=== PATIENT | female | born 1990 | race Hispanic/Latino ===

== ENCOUNTER 2019-02-25 12:39 | Emergency (ER) | payer SELFPAY ==
--- NOTE | 2019-02-25 12:46 | Event Note ---
ED Screening Note Date of service: 02/25/19 Time: 12:45 ED Screening Note: 28 y/o female comes in for left great toe pain, redness and discharge. This initial assessment/diagnostic orders/clinical plan/treatment(s) is/are subject to change based on patients health status, clinical progression and re- assessment by fellow clinical providers in the ED. Further treatment and workup at subsequent clinical providers discretion. Patient/guardian urged not to elope from the ED as their condition may be serious if not clinically assessed and managed. Initial orders include:
[2019-02-25 12:47] VITALS: BP 100/68
--- NOTE | 2019-02-25 14:54 | Emergency Department Report ---
ED Lower Extremity HPI - General Chief Complaint: Extremity Problem,Nontraumatic Stated Complaint: INFECTION ON TOE/BLEEDING Time Seen by Provider: 02/25/19 12:45 Source: patient Mode of arrival: Ambulatory Limitations: No Limitations - History of Present Illness Initial Comments: infected left great toe Complaint: other (left great toe) Onset/Timin -: days(s) Injury: Toes: Left (great) Type of Injury: unknown Place: home Severity: severe Severity scale (0 -10): 8 Improves With: nothing Worsens With: movement Context: other (unknown) Other Symptoms: other (none) Associated Symptoms: swelling, able to partially bear weight Treatments Prior to Arrival: bandage - Related Data Previous Rx's Medication Instructions Recorded Last Taken Type Clindamycin [Clindamycin CAP] 300 mg PO Q8H #30 cap 02/25/19 Unknown Rx Ibuprofen [Motrin 600 MG tab] 600 mg PO TID #30 02/25/19 Unknown Rx Mupirocin [Bactroban 2%] 1 applic TP TID #1 tube 02/25/19 Unknown Rx Allergies Allergy/AdvReac Type Severity Reaction Status Date / Time No Known Allergies Allergy Unverified 02/25/19 12:42 ED Review of Systems ROS: Stated complaint: INFECTION ON TOE/BLEEDING Other details as noted in HPI Constitutional: denies: chills, fever Eyes: denies: eye pain, eye discharge, vision change ENT: denies: ear pain, throat pain Respiratory: denies: cough, shortness of breath, wheezing Cardiovascular: denies: chest pain, palpitations Endocrine: no symptoms reported Gastrointestinal: denies: abdominal pain, nausea, diarrhea Genitourinary: denies: urgency, dysuria, discharge Musculoskeletal: denies: back pain, joint swelling, arthralgia Skin: change in color (left great toe). denies: rash, lesions Neurological: denies: headache, weakness, paresthesias Psychiatric: denies: anxiety, depression Hematological/Lymphatic: denies: easy bleeding, easy bruising, swollen glands ED Past Medical Hx - Past Medical History Previous Medical History?: Yes Hx Pulmonary Embolism: Yes - Surgical History Past Surgical History?: Yes Additional Surgical History: C section - Social History Smoking Status: Current Every Day Smoker Substance Use Type: None - Medications Home Medications: Home Medications Medication Instructions Recorded Confirmed Last Taken Type Clindamycin [Clindamycin CAP] 300 mg PO Q8H #30 cap 02/25/19 Unknown Rx Ibuprofen [Motrin 600 MG tab] 600 mg PO TID #30 02/25/19 Unknown Rx Mupirocin [Bactroban 2%] 1 applic TP TID #1 tube 02/25/19 Unknown Rx ED Physical Exam - General Limitations: No Limitations General appearance: alert, in no apparent distress - Respiratory Respiratory exam: Present: normal lung sounds bilaterally. Absent: respiratory distress, wheezes, rales, rhonchi, stridor, chest wall tenderness, accessory muscle use, decreased breath sounds, prolonged expiratory - Cardiovascular Cardiovascular Exam: Present: regular rate, normal rhythm, normal heart sounds. Absent: bradycardia, tachycardia, irregular rhythm, systolic murmur, diastolic murmur, rubs, gallop - Expanded Lower Extremity Exam Left Hip exam: Present: normal inspection, full ROM Upper Leg exam: Present: normal inspection, full ROM Knee exam: Present: normal inspection, full ROM Lower Leg exam: Present: normal inspection, full ROM Ankle exam: Present: normal inspection, full ROM Foot/Toe exam: Present: full ROM, tenderness (left great toe), swelling (left great toe), erythema (left medial great toe) Neuro vascular tendon exam: Present: no vascular compromise. Absent: pulse deficit, abnormal cap refill, motor deficit, sensory deficit, tendon deficit, extremity cold to touch, pallor, abnormal 2-point discrimination, decreased fine/light touch, foot drop, peroneal nerve deficit, significant pain with passive ROM of distal joint Gait: Positive: observed and limited by pain - Neurological Exam Neurological exam: Present: alert, oriented X3, CN II-XII intact, normal gait, reflexes normal. Absent: motor sensory deficit - Psychiatric Psychiatric exam: Present: normal affect, normal mood - Skin Skin exam: Present: warm, dry, intact, normal color. Absent: rash ED Course Vital Signs 02/25/19 12:45 Temperature 97.5 F L Pulse Rate 98 H Respiratory 18 Rate Blood Pressure 100/68 O2 Sat by Pulse 100 Oximetry ED Lower Extremity MDM - Lab Data Vital Signs 02/25/19 12:45 Temperature 97.5 F L Pulse Rate 98 H Respiratory 18 Rate Blood Pressure 100/68 O2 Sat by Pulse 100 Oximetry - Medical Decision Making During the course of ED, all other systems are unremarkable except documentation in HPI. Wound care to left toe prior to discharge. Patient sent home with prescriptions for Clindamycin and Ibuprofen, instructed keep the wound clean with antibacterial soap, dry and covered. She verbalized understanding - Differential Diagnosis Left Great Toe Pain, Infection Critical care attestation.: If time is entered above; I have spent that time in minutes in the direct care of this critically ill patient, excluding procedure time. ED Disposition Clinical Impression: Wound infection Disposition: DC- TO HOME OR SELFCARE Is pt being admited?: No Does the pt Need Aspirin: No Condition: Stable Instructions: Wound Infection (ED) Additional Instructions: Take medication as directed. Keep the wound clean with antibacterial soap, dry and covered. Follow up with the selective referral given at discharge Prescriptions: Mupirocin [Bactroban 2%] 1 applic TP TID #1 tube Clindamycin [Clindamycin CAP] 300 mg PO Q8H #30 cap Ibuprofen [Motrin 600 MG tab] 600 mg PO TID #30 Referrals: [facility] [Outside] - 3-5 Days [facility] [Outside] - 3-5 Days Time of Disposition: 15:06
== END 2019-02-25 15:27 | disposition home or self-care (01) ==
LOC: ED 12:39
DX: T81.49XA Infection following a procedure, other surgical site, initial encounter (principal); F17.200 Nicotine dependence, unspecified, uncomplicated; Y92.89 Other specified places as the place of occurrence of the external cause
CPT/HCPCS: 99282

== ENCOUNTER 2019-04-15 17:43 | Emergency (ER) | payer SELFPAY ==
--- NOTE | 2019-04-15 18:18 | Event Note ---
ED Screening Note ED Screening Note: This initial assessment/diagnostic orders/clinical plan/treatment(s) is/are subject to change based on patients health status, clinical progression and re- assessment by fellow clinical providers in the ED. Further treatment and workup at subsequent clinical providers discretion. Patient/guardian urged not to elope from the ED as their condition may be serious if not clinically assessed and managed. Initial orders include: 29yo WF states that she had a L big toe surgery 1 week ago and states that it looks infected. She further states she never started antibiotics that were prescribed.
[2019-04-15 19:24] LABS: Basophils # (Auto) 0.1 K/mm3 (0.0-0.1); Basophils % (Auto) 1.2 % (0.0-1.8); Eosinophils # (Auto) 0.1 K/mm3 (0.0-0.4); Hematocrit 36.9 % (30.3-42.9); Hemoglobin 12.5 gm/dl (10.1-14.3); Lymphocytes # (Auto) 2.5 K/mm3 (1.2-5.4); Lymphocytes % (Auto) 29.5 % (13.4-35.0); Mean Corpuscular HGB Conc 34 % (30-34); Mean Corpuscular Volume 87 fl (79-97); Monocytes # (Auto) 0.7 K/mm3 (0.0-0.8); Monocytes % (Auto) 8.3 % (0.0-7.3); Platelet Count 356 K/mm3 (140-440); Red Blood Count 4.25 M/mm3 (3.65-5.03); Red Cell Distribution Width 12.3 % (13.2-15.2)
[2019-04-15] MEDS ORDERED: SODIUM CHLORIDE 0.9% IRR 500 ML BOTTLE IR ONE ×2 (21:47→21:49)
[2019-04-15] MEDS ORDERED: ALPRAZolam 1 MG TAB PO ONE (21:47)
[2019-04-15] MEDS ORDERED: IBUPROFEN 600 MG TAB PO ONE (21:47)
--- NOTE | 2019-04-15 21:48 | Emergency Department Report ---
ED General Adult HPI - General Chief complaint: Extremity Problem,Nontraumatic Stated complaint: POST L FOOT SURGERY ISSUES Time Seen by Provider: 04/15/19 21:23 Source: patient, RN notes reviewed Mode of arrival: Ambulatory Limitations: No Limitations - History of Present Illness Initial comments: This is a 29-year-old female. This patient is not known to this provider previously. The patient is a poor historian. She reports that she was admitted to [facility] a few weeks ago for a left great toe infection. She believes that she was in the hospital for over a week. 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 The patient has not been compliant with her outpatient therapy. She was prescribed Keflex antibiotics, which she has not taken. She also reports that she's not had her left great toe dressing changed, and she reports that she got her dressing wet, in spite of being instructed to not get it wet. She presents to the ER for a dressing change, and for a wound evaluation. She denies complaints, with the exception of anxiety. The patient states that she is not . The patient cannot recall full name of the doctor that did her left great toe surgery. The patient denies headache, neck pain, chest pain, abdominal pain, fevers, chills, vomiting. She is asking to eat at this time. -: Gradual Location: left, lower extremity Improves with: none Worsens with: none - Related Data Previous Rx's Medication Instructions Recorded Last Taken Type Clindamycin [Clindamycin CAP] 300 mg PO Q8H #30 cap 02/25/19 Unknown Rx Ibuprofen [Motrin 600 MG tab] 600 mg PO TID #30 02/25/19 Unknown Rx Mupirocin [Bactroban 2%] 1 applic TP TID #1 tube 02/25/19 Unknown Rx Amoxicillin/Potassium Clav 1 each PO BID #28 tablet 04/15/19 Unknown Rx [Augmentin 875-125 Tablet] Allergies Allergy/AdvReac Type Severity Reaction Status Date / Time No Known Allergies Allergy Unverified 02/25/19 12:42 ED Review of Systems ROS: Stated complaint: POST L FOOT SURGERY ISSUES Other details as noted in HPI Constitutional: denies: fever Eyes: denies: eye discharge ENT: denies: congestion Respiratory: denies: wheezing Cardiovascular: denies: chest pain Gastrointestinal: denies: abdominal pain Skin: change in color Psychiatric: anxiety ED Past Medical Hx - Past Medical History Previous Medical History?: Yes Hx Pulmonary Embolism: Yes Additional medical history: Pleurisy - Surgical History Past Surgical History?: Yes Additional Surgical History: C section. Surgery to left foot/partial amputation. - Social History Smoking Status: Current Every Day Smoker Substance Use Type: None - Medications Home Medications: Home Medications Medication Instructions Recorded Confirmed Last Taken Type Clindamycin [Clindamycin CAP] 300 mg PO Q8H #30 cap 02/25/19 Unknown Rx Ibuprofen [Motrin 600 MG tab] 600 mg PO TID #30 02/25/19 Unknown Rx Mupirocin [Bactroban 2%] 1 applic TP TID #1 tube 02/25/19 Unknown Rx Amoxicillin/Potassium Clav 1 each PO BID #28 tablet 04/15/19 Unknown Rx [Augmentin 875-125 Tablet] ED Physical Exam - General Limitations: No Limitations General appearance: alert, anxious - Head Head exam: Present: atraumatic, normocephalic - Eye Eye exam: Present: normal appearance, EOMI. Absent: nystagmus - ENT ENT exam: Present: normal exam, normal orophraynx, mucous membranes moist, normal external ear exam - Neck Neck exam: Present: normal inspection, full ROM. Absent: tenderness, meningismus - Respiratory Respiratory exam: Present: normal lung sounds bilaterally. Absent: respiratory distress - Cardiovascular Cardiovascular Exam: Present: regular rate, normal rhythm, normal heart sounds. Absent: bradycardia, tachycardia, irregular rhythm, systolic murmur, diastolic murmur, rubs, gallop - GI/Abdominal GI/Abdominal exam: Present: soft, normal bowel sounds. Absent: distended, tenderness, guarding, rebound, rigid, pulsatile mass - Extremities Exam Extremities exam: Present: full ROM, other (2+ pulses noted in the bilateral upper, lower extremities. There is no long bone tenderness. Musculoskeletal compartments are soft. The pelvis is stable.). Absent: normal inspection (the left great toe has a number of sutures, and has distal necrotic tissue. There is erythematous tissue, with some serous discharge.), calf tenderness - Back Exam Back exam: Present: normal inspection. Absent: tenderness, CVA tenderness (R), CVA tenderness (L), paraspinal tenderness, vertebral tenderness - Neurological Exam Neurological exam: Present: alert (sensation is intact to light touch in 4 extremities), other (there is no facial droop. The tongue is midline. The extraocular movements are intact bilaterally. 5 out of 5 strength in 4 extremities.) - Psychiatric Psychiatric exam: Present: anxious - Skin Skin exam: Present: warm ED Course Vital Signs 04/15/19 04/15/19 04/15/19 18:13 21:45 22:53 Temperature 98.7 F Pulse Rate 129 H 95 H Respiratory 18 17 18 Rate Blood Pressure 98/74 Blood Pressure 119/60 [Right] O2 Sat by Pulse 98 99 Oximetry 04/15/19 23:25 Temperature Pulse Rate 102 H Respiratory 18 Rate Blood Pressure Blood Pressure 93/60 [Right] O2 Sat by Pulse 98 Oximetry - Reevaluation(s) Reevaluation #1: 04/15/19 23:[address] Ma's colleague, Dr. Malvin Zapien. He indicates he will discuss with Dr. Ma tomorrow morning, and have Dr. Ma's office reach out to the patient's to closely arrange outpatient follow-up. Dr. Ma's office has follow-up/wound care on Thursday, and he indicates the patient should be able to follow-up early next week. Agrees with antibiotic selection. ED Medical Decision Making - Lab Data Result diagrams: 04/15/19 18:36 Vital Signs 04/15/19 04/15/19 18:13 21:45 Temperature 98.7 F Pulse Rate 129 H 95 H Respiratory 18 17 Rate Blood Pressure 98/74 Blood Pressure 119/60 [Right] O2 Sat by Pulse 98 99 Oximetry Lab Results 04/15/19 Range/Units 18:36 WBC 8.4 (4.5-11.0) K/mm3 RBC 4.25 (3.65-5.03) M/mm3 Hgb 12.5 (10.1-14.3) gm/dl Hct 36.9 (30.3-42.9) % MCV 87 (79-97) fl MCH 29 (28-32) pg MCHC 34 (30-34) % RDW 12.3 L (13.2-15.2) % Plt Count 356 (140-440) K/mm3 Lymph % (Auto) 29.5 (13.4-35.0) % Wayne % (Auto) 8.3 H (0.0-7.3) % Eos % (Auto) 1.0 (0.0-4.3) % Baso % (Auto) 1.2 (0.0-1.8) % Lymph # 2.5 (1.2-5.4) K/mm3 Wayne # 0.7 (0.0-0.8) K/mm3 Eos # 0.1 (0.0-0.4) K/mm3 Baso # 0.1 (0.0-0.1) K/mm3 Seg Neutrophils % 60.0 (40.0-70.0) % Seg Neutrophils # 5.1 (1.8-7.7) K/mm3 - Medical Decision Making Differential diagnosis, including not limited to: Medication noncompliance, wound dressing change, wound infection, wound necrosis assessment and plan: 29-year-old female presenting with a request for dressing change, and wound evaluation. Tachycardia resolved, blood pressure normalized. She is not febrile, she is nontoxic appearing, and she is somewhat anxious. There is no streaking, crepitus, and there does not appear to be systemic involvement. She appears to have wounds necrosis, with a localized infection. The patient's dressing was changed, and she is suitable for trial of oral outpatient antibiotic management. At this point time, she does not meet criteria for emergent transfer, or emergent hospitalization. She was strongly advised to remain compliant with antibiotic therapy, to closely follow-up with her outpatient contact lens blocker, and to take antibiotics, and to avoid getting the wound wet. Critical care attestation.: If time is entered above; I have spent that time in minutes in the direct care of this critically ill patient, excluding procedure time. ED Disposition Clinical Impression: Non-compliance Wound, open, toe Qualifiers: Encounter type: sequela Qualified Code(s): S91.109S - Unspecified open wound of unspecified toe(s) without damage to nail, sequela Disposition: TO HOME OR SELFCARE Is pt being admited?: No Does the pt Need Aspirin: No Condition: Stable Additional Instructions: Keep the dressing in place. Keep the left great toe and left foot dry. Wear loosefitting shoes and footwear. Take the antibiotics as directed. Recommend following up with her outpatient contact lens blocker, Dr. Alfredo Suarez, within the next 2-3 days. [facility] [address] [place] [address] [place] [address] [facility] [address] [place] [address] [facility] [address] [place] [address] Not following up with contact lens blocker as recommended may result in worsening wound, which may cause bone infection, which may lead to further need for amputation, systemic illness, disability, , paralysis, loss of quality of life. Return to the emergency room right away with new, worsened or different symptoms, not present on the initial emergency room evaluation. Patient may also follow-up with the local wound care center and wound care physician, recommend calling for follow-up appointment if she is not able to obtain follow-up appointment with her contact lens blocker within the next 2-3 days. For pain, the patient may take [id number] Tylenol and ibuprofen, as needed. Prescriptions: Amoxicillin/Potassium Clav [Augmentin 875-125 Tablet] 1 each PO BID #28 tablet Referrals: [facility] [Outside] - 3-5 Days JANICE MIRZA MD [Staff Physician] - 3-5 Days
[2019-04-15] MEDS ORDERED: AMOXICILLIN/K CLAV 875/125MG TAB PO ONE (22:35)
[2019-04-16 00:34] VITALS: BP 93/60
== END 2019-04-15 23:25 | disposition home or self-care (01) ==
LOC: ED 17:43
DX: S91.102A Unspecified open wound of left great toe without damage to nail, initial encounter (principal); Z91.14 Patient's other noncompliance with medication regimen; F17.200 Nicotine dependence, unspecified, uncomplicated; Z86.711 Personal history of pulmonary embolism; Z98.890 Other specified postprocedural states; X58.XXXA Exposure to other specified factors, initial encounter; Y93.89 Activity, other specified; Y92.89 Other specified places as the place of occurrence of the external cause; Y99.8 Other external cause status
CPT/HCPCS: 36415; 85025

== ENCOUNTER 2021-01-01 20:11 | Emergency (ER) | payer SELFPAY | END 2021-01-02 01:09 | disposition left against medical advice (07) | LOC: ED 20:11 | DX: R50.9 Fever, unspecified (principal); Z53.21 Procedure and treatment not carried out due to patient leaving prior to being seen by health care provider ==